=== PATIENT | female | born 1960 | race Caucasian/White ===

== ENCOUNTER 2016-05-28 09:54 | Emergency (ER) | payer MEDICARE, OTHER ==
[~2016-05-28 09:54] MED LIST: LEVAQUIN500 MG PO
[2016-05-28 12:25] LABS: HEMOGLOBIN 15.1 gm/dl (12.3-15.3); RED BLOOD COUNT 4.63 M/UL (4.00-5.10); WHITE BLOOD COUNT 9.6 K/UL (4.5-11.0)
[2016-05-28 13:00] LABS: BUN/CREATININE RATIO 12 (0-10)
== END 2016-05-28 19:50 | disposition home or self-care (01) ==
LOC: ER1 09:54
PROVIDERS: Emergency Medicine
DX: J44.1 Chronic obstructive pulmonary disease with (acute) exacerbation (principal); Z88.5 Allergy status to narcotic agent
CPT/HCPCS: 36415; 36600; 71010; 80053; 81001; 82550; 82553; 82803; 83605; 83690; 83874; 83880; 84484; 85025; 85610; 85730; 87040; 87086; 93005; 94640; 94664; 96374; 99285; J2930; J7030

== ENCOUNTER → 2020-04-27 | Outpatient (CLI) | payer MEDICARE, OTHER ==
[~2020-04-27] MED LIST changes: +ALEVE220 MG PO; +OMEPRAZOLE20 MG PO; +SPIRIVA RESPIMAT4 GM INH; +SYMBICORT 16010.2 GM INH; +VENTOLIN HFA 66.7 GM INH
== END ==
LOC: HEART 5 11:16
DX: J44.9 Chronic obstructive pulmonary disease, unspecified (principal); Z87.891 Personal history of nicotine dependence
CPT/HCPCS: 94010; 94729

== ENCOUNTER → 2020-12-30 | Outpatient (CLI) | payer MEDICARE | LOC: KOH-I 10-22 13:00 | DX: F17.210 Nicotine dependence, cigarettes, uncomplicated (principal) | CPT/HCPCS: 71271 ==